=== PATIENT | male | born 1995 | race African-American/Black ===

== ENCOUNTER 2023-04-01 14:17 | Emergency (ER) | payer MEDICAID ==
[~2023-04-01] VITALS: Ht 177.8 cm; Wt 84.0 kg
[2023-04-01 14:40] VITALS: O2SAT 100
[2023-04-01] MEDS ORDERED: NAPR-681 MT (17:44)
[2023-04-01 18:46] VITALS: BP 135/78; PULSE 98; RESP 15; TEMP 97.4
== END 2023-04-01 18:47 | disposition home or self-care (01) ==
LOC: ER 14:17
DX: S93.402A Sprain of unspecified ligament of left ankle, initial encounter (principal); X58.XXXA Exposure to other specified factors, initial encounter; Y30.XXXA Falling, jumping or pushed from a high place, undetermined intent, initial encounter; Y93.89 Activity, other specified; Y92.89 Other specified places as the place of occurrence of the external cause; Y99.8 Other external cause status
CPT/HCPCS: 73610; 73630; 99284; Z7610